=== PATIENT | female | born 1985 | race Two or more races ===

== ENCOUNTER 2018-02-06 06:17 | Day surgery (SDC) | payer OTHER ==
[~2018-02-06] VITALS: Ht 160 cm; Wt 99.8 kg
[2018-02-06] VITALS (11 sets, daily range): BP systolic 114–156; BP diastolic 69–94
[~2018-02-06 06:17] MED LIST: NKM; ceFAZolin 1gm in D5W 55ml IVP ONE; celeBREX 200mg Cap **SURGERY PATIENTS ONLY ORAL ONE; oxyCONTIN 20mg tab ORAL ONE
--- NOTE | 2018-02-06 07:45 | Anethesia Preoperative Eval ---
Anesthesia Pre-op PMH/ROS General Date of Evaluation: Feb 06, 2018 Anesthesiologist: Max ASA Score: ASA 2 Mallampati Score Class I : Soft palate, uvula, fauces, pillars visible Class II: Soft palate, uvula, fauces visible Class III: Soft palate, base of uvula visible Class IV: Only hard plate visible Mallampati Classification: Class III Surgeon: Ravi Diagnosis: Right knee internal derangement Surgical Procedure: Right knee arthrosocpy with possible medial patellofemoral ligament reconst Anesthesia History: none Family History: no anesthesia problems Allergies: Uncoded Allergies: clear tape (Allergy, Severe, 02/05/18) HIVES AND RASH Medications: see eMAR Past Medical History Cardiovascular: Denies: HTN, CAD, [place], valve dz, arrhythmia, other Pulmonary: Denies: asthma, COPD, NEFTALY, other Gastrointestinal/Genitourinary: Denies: GERD, CRI, ESRD, other Neurologic/Psychiatric: Denies: dementia, CVA, depression/anxiety, TIA, other Endocrine: Denies: DM, hypothyroidism, steroids, other HEENT: Denies: cataract (L), cataract (R), glaucoma, [place] (L), [place] (R), other Hematology/Immune: Denies: anemia, DVT, bleeding disorder, other Musculoskeletal/Integumentary: Denies: OA, RA, DJD, DDD, edema, other Other: obesity PSxH Narrative: shiela, uterine rupture repait Anesthesia Pre-op Phys. Exam Physician Exam Last Vital Signs Date Time Temp Pulse Resp B/P (MAP) Pulse Ox O2 Delivery O2 Flow Rate FiO2 02/06/18 06:52 98.1 71 18 114/71 (85) 100 98.1 02/06/18 06:50 Room Air Constitutional: NAD Cardiovascular: RRR Respiratory: CTA Airway Exam Mallampati Score: Class III MO: full ROM: full Teeth: intact Anesthesia Pre-op A/P Labs see chart Urine Test Test 02/06/18 06:30 Urine HCG, Qualitative Negative (NEGATIVE) Studies Pre-op Studies: EKG - sr Risk Assessment & Plan Assessment: ASA II Plan: GA Status Change Before Surgery: No Pre-Antibiotics Drug: Ancef 2g Given Within 1 Hr of Incision: Yes Time Given: 09:05 Katelynn Meza MD Feb 06, 2018 07:45
--- NOTE | 2018-02-06 07:46 | Pre-Procedure Note/Attestation ---
Pre-Procedure Note/Attestation Complete Prior to Procedure Planned Procedure: right Procedure Narrative: knee diagnostic, possible MPLF reconstruction Indications for Procedure Pre-Operative Diagnosis: right knee interal derangment Attestation I attest that I discussed the nature of the procedure; its benefits; risks and complications; and alternatives (and the risks and benefits of such alternatives ), prior to the procedure, with the patient (or the patient's legal personal financial representative). I attest that, if there was a reasonable possibility of needing a blood transfusion, the patient (or the patient's legal personal financial representative) was given the [facility] standardized written summary, pursuant to the [place] Sig[place] Blood Safety Act ([place] Health and Safety Code # 1645, as amended). I attest that I re-evaluated the patient just prior to the surgery and that there has been no change in the patient's H&P, except as documented below: Octavio Rodrigues MD Feb 06, 2018 07:46
--- NOTE | 2018-02-06 07:47 | Operative Note - PDOC ---
Operative Note Operative Note Pre-op Diagnosis: right knee interal derangment Procedure: see op report Post-op Diagnosis: same as pre-op plus Operative Findings: consistent w/pre-op dx studies Anesthesia: regional Specimen: none Complications: none Condition: stable Estimated Blood Loss: none Implant(s) used?: Yes Octavio Rodrigues MD Feb 06, 2018 07:47
[2018-02-06] MEDS ORDERED: Bupivacaine 0.5% Inj 30 ml vial INJ ONE (08:44)
[2018-02-06] MEDS ORDERED: EPINEPHrine 1mg/1ml Amp ONE (08:44)
[2018-02-06] MEDS ORDERED: Lidocaine 1% 10mg/ml/Epi 0.005mg/ml 30ml vial INJ ONE (08:44)
[2018-02-06] MEDS ORDERED: Propofol 200mg/20ml IV ONE (08:49)
[2018-02-06] MEDS ORDERED: Lidocaine 1% MPF 10mg/ml 5ml ONE (08:49)
[2018-02-06] MEDS ORDERED: fentaNYL 100 mcg/2 mL IV ONE (08:50)
[2018-02-06] MEDS ORDERED: Sterile Water Irrig 1000ml IRRIG ONE (09:00)
[2018-02-06] MEDS ORDERED: LR 1000ml ONE (09:00)
[2018-02-06] MEDS ORDERED: NS Irrig 4000ml IRRIG ONE (09:00)
[2018-02-06] MEDS ORDERED: LR 1000ml 1,000 ML IVLG SCH (09:21)
[2018-02-06] MEDS ORDERED: fentaNYL 100 mcg/2 mL IV PRN (09:30)
[2018-02-06] MEDS ORDERED: DiphenhydrAMINE 50mg/ml Inj IVP PRN (09:30)
--- NOTE | 2018-02-06 10:59 | 48 Hour Post Anesthesia Eval ---
Post Anesthesia Evaluation Procedure: Right knee arthroscopy and medial patello-femoral ligament reconstruction Date of Evaluation: Feb 06, 2018 Airway: patent Nausea: No Vomiting: No Pain Intensity: 0 Hydration Status: adequate Cardiopulmonary Status: at baseline Mental Status/LOC: patient returned to baseline Post-Anesthesia Complications: 0 Follow-up care needed: N/A - further care as per primary team Katelynn Meza MD Feb 06, 2018 10:59
--- NOTE | 2018-02-06 10:59 | Immediate Post-Op Evaluation ---
Immediate Post-Op Evalulation Immediate Post-Op Evalulation Procedure: Right knee arthroscopy and medial patello-femoral ligament reconstruction Date of Evaluation: Feb 06, 2018 Time of Evaluation: 11:00 IV Fluids: 700 Blood Products: 0 Estimated Blood Loss: min Urinary Output: 0 Blood Pressure Systolic: 148 Blood Pressure Diastolic: 94 Pulse Rate: 72 Respiratory Rate: 17 O2 Sat by Pulse Oximetry: 98 Temperature (Fahrenheit): 97.9 Pain Score (1-10): 0 Nausea: No Vomiting: No Complications 0 Patient Status: awake, reacts, patent, none Hydration Status: adequate Drug: Ancef 2g Given Within 1 Hr of Incision: Yes Time Given: 09:05 Katelynn Meza MD Feb 06, 2018 10:59
[2018-02-06] MEDS ORDERED: Ketorolac 30mg Inj IV ONE (12:30)
--- NOTE | 2018-02-06 17:15 | Operative Note - Dictated ---
DATE OF OPERATION: 02/06/2018 NOTE: "POOR AUDIO QUALITY" PREOPERATIVE DIAGNOSES: 1. Right knee instability secondary to medial patellofemoral ligament tear. 2. Right knee internal derangement secondary to chondral damage. POSTOPERATIVE DIAGNOSES: 1. Grade 3 chondral damage, patellofemoral compartment. 2. Hypertrophic synovial tissue/fat pad. 3. Patellar instability. PROCEDURE: 1. Right knee diagnostic arthroscopy. 2. Right knee synovectomy of lateral and patellofemoral compartment. 3. Right knee patellofemoral chondroplasty. 4. Right knee open medial patellofemoral ligament reconstruction with tibialis anterior allograft. SURGEON: Octavio Rodrigues M.D. INDICATION FOR PROCEDURE: The patient is a pleasant 32-year-old female with instability of the right knee after a mechanical fall. She has attenuation of medial patellofemoral ligament, had continued instability, and elected to undergo right knee diagnostic arthroscopy and possible MPF ligament reconstruction. Perioperatively, we discussed with the patient that we we would scope her knee and evaluate for any internal pathology that could be causing her symptoms. Based on the internal findings of the diagnostic arthroscopy, chondroplasty, synovectomy, meniscectomy may be reasonable. Once the diagnostic arthroscopy would be completed, the evaluation of the patella would be performed of this gross instability, the medial retinaculum and MPFL tissue would be evaluated to see if primary repair versus formal medial patellofemoral ligament reconstruction would be performed. Risks, limitations, expectations, and complications of the procedure were discussed in detail including continued pain, need for future surgery, risk of anesthesia, medical complications, DVT, PE, mortality risks. All questions were addressed in particular the fact that she could have recurrent instability as well as have continued anterior knee pain if she does have significant chondral damage of the patellofemoral compartment. DESCRIPTION OF PROCEDURE: After informed consent was obtained, the patient was brought to the operating room. The patient was placed under general anesthesia. Tourniquet was applied to the right proximal thigh. Right leg was prepped and draped in sterile manner. At this point, evaluation of the knee was performed. There was +3 laxity of lateral patella, subluxation with full extension and at 60 degrees of flexion. Moderate crepitus with patellar grinding. An Esmarch was used to exsanguinate the extremity. Inferolateral stab incision was then made. Trocar was introduced into the knee joint. There was significant fat pad, synovial tissue, and chondral damage of the patellofemoral compartment making visualization difficult. The medial gutter was entered. Medial portal was entered. Medial working portal was established. Synovectomy of the anterior portion of the medial compartment was performed to better visualize the medial compartment. The medial compartment was entered and was free of meniscal or chondral damage. The synovectomy and resection of the fat pad was extended into the intercondylar notch and the lateral compartment. The ACL was probed and noted to be intact. The lateral compartment was entered and was free of meniscal or chondral damage. At this point, camera was repositioned in the patellofemoral compartment. Complete synovectomy and excision of the fat pad was performed to better visualize the patellofemoral compartment. There was significant grade 3 chondral damage in the patellofemoral compartment. Gentle chondroplasty was performed. At this point, viewing from the internal side of the knee, there was attenuation of the soft tissues medially and there was lateral tracking of the patella. Therefore, a medial incision just medial to the medial border of the patella was performed. The subcutaneous tissue was dissected down to the edge of the patella. At this point, the superior third of the lateral edge of the patella was identified. Rongeur was used to remove any soft tissues down to bleeding bone. At this point, attention was drawn towards the evaluation of the medial retinaculum and MPF ligament. It seemed there was significant attenuation. Therefore, primary repair would not be unreasonable. Therefore, formal MPFL ligament reconstruction was elected to be performed. At this point, a guidewire was placed into the abductor tubercle using fluoroscopy and a femoral tunnel was prepared. The ToggleLoc suture relay system was then passed along with a tibialis anterior allograft into a 30 mm femoral tunnel. Once this was done going between layers 1 and 2, blunt dissection just superficial to the capsule was performed. The two ends of the tibialis anterior allograft were then passed in this direction. The two ends of the patella were then secured to the patella using 2 JuggerKnot anchors with the Krackow stitches. Once this was done, the evaluation of the knee was performed. The JuggerKnot was slowly appropriately tensioned. Camera was repositioned into the knee for further tensioning and the medial edge of the patella was along the medial edge of the trochlear groove. At this point, the instruments were removed. Portal sites were closed with #1 Vicryl, 2-0 Vicryl, 3-0 Monocryl sutures. Steri-Strips and a sterile dressing were applied. The patient was awoken and taken to recovery room with stable vital signs. ESTIMATED BLOOD LOSS: None. COMPLICATIONS: None. SPECIMENS: None. IMPLANTS: Include tibialis anterior allograft, a ToggleLoc relay suture, and 2 JuggerKnot anchors. Octavio Rodrigues M.D. DR: Olga JOB#: [id number] CC:
== END 2018-02-06 14:30 | disposition home or self-care (01) ==
LOC: SUR 06:17
DX: M23.51 Chronic instability of knee, right knee (principal); M79.4 Hypertrophy of (infrapatellar) fat pad; M67.261 Synovial hypertrophy, not elsewhere classified, right lower leg; M94.9 Disorder of cartilage, unspecified; E66.9 Obesity, unspecified
CPT/HCPCS: 27428; 29876; 73560; 76001; 81025; 97161; J0171; J0690; J1885; J2704; J3010; J3490; 94003; 94150; J2405